=== PATIENT | male | born 1960 | race Caucasian/White ===

== ENCOUNTER 2021-03-08 08:20 | Outpatient (CLI) | payer BC, SELFPAY ==
--- NOTE | 2021-03-08 08:28 | EKG12_ITS ---
Test Reason : PRE OP Blood Pressure : / mmHG Vent. Rate : 042 BPM Atrial Rate : 042 BPM P-R Int : 152 ms QRS Dur : 094 ms QT Int : 450 ms P-R-T Axes : -09 018 032 degrees QTc Int : 375 ms Marked sinus bradycardia Abnormal ECG Confirmed by KRIS VANG, KADE ([id number]), scientific publications editor FUENTES JEFFERY ([id number]) on 03/09/2021 9:09:42 AM Referred By: Lana Wood Confirmed By:KADE PONCE MD
== END 2021-03-08 23:59 | disposition short-term general hospital (02) ==
LOC: PSN 08:27
PROVIDERS: PCP Family Medicine; Referring Provider Physician Assistant Surgical; Visit Provider Physician Assistant Surgical
DX: Z79.899 Other long term (current) drug therapy (principal)
CPT/HCPCS: 93005